=== PATIENT | female | born 1980 | race American Indian/Alaskan Native ===

== ENCOUNTER 2016-12-02 17:26 | Emergency (ER) | payer MEDICAID ==
[2016-12-02 19:39] VITALS: BP 129/81
[2016-12-02 19:53] LABS: Basophils % (Auto) 0.5 % (0.0-1.8); Eosinophils % (Auto) 0.8 % (0.0-4.3); Hemoglobin 10.2 gm/dl (10.1-14.3); Mean Corpuscular HGB Conc 31 % (30-34); Mean Corpuscular Volume 74 fl (79-97); Platelet Count 390 K/mm3 (140-440); Red Blood Count 4.44 M/mm3 (3.65-5.03); Red Cell Distribution Width 19.9 % (13.2-15.2); White Blood Count 8.2 K/mm3 (4.5-11.0)
[2016-12-02 19:58] LABS: Mean Corpuscular Hemoglobin 23 pg (28-32)
[2016-12-02 20:03] LABS: INR 1.06 (0.87-1.13)
[2016-12-02 20:08] LABS: Partial Thromboplastin Time 27.1 Sec. (24.2-36.6)
[2016-12-02 20:09] LABS: Alanine Aminotransferase 15 units/L (7-56); Albumin/Globulin Ratio 1.1 %; Alkaline Phosphatase 67 units/L (35-129); Anion Gap 19 mmol/L; BUN/Creatinine Ratio 15.71; Bilirubin,Total < 0.20 mg/dL (0.1-1.2); Blood Urea Nitrogen 11 mg/dL (7-17); Calcium 9.2 mg/dL (8.4-10.2); Carbon Dioxide 25 mmol/L (22-30); Chloride 101.5 mmol/L (98-107); Glucose 93 mg/dL (65-100); Lipase 26 units/L (13-60); Potassium 3.7 mmol/L (3.6-5.0); Sodium 142 mmol/L (137-145); Total Protein 7.5 g/dL (6.3-8.2)
[2016-12-02 22:23] LABS: Bacteria,Urine 2+ /HPF (Negative); Bilirubin,Urine NEG (Negative); Blood,Urine NEG (Negative); Ketones,Urine TR mg/dL (Negative); Leukocyte Esterase,Urine NEG (Negative); Mucus,Urine 3+ /HPF; Nitrite,Urine NEG (Negative); Urobilinogen,Urine < 2.0 mg/dL (<2.0)
[2016-12-02 22:27] LABS: WBC,Urine < 1.0 /HPF (0.0-6.0)
--- NOTE | 2016-12-02 23:23 | Emergency Department Report ---
HPI - General Chief Complaint: Abdominal Pain Time Seen by Provider: 12/02/16 23:07 - HPI HPI: Room 2 The patient is a 36-year-old female presenting with multiple complaints from headache to abdominal pain. The patient states for 1 month she has had intermittent headaches and dizziness associated with nausea and vomiting. The patient states she has felt cold for approximately 3 weeks. The patient states for 1 week she has had left upper quadrant and left lower quadrant abdominal pain. Patient also states for the past 2 years she has had chronic back pain from her sciatica. Patient currently gives her pain a score of 10/10. Patient denies any other complaints Location: [see above] Duration: [see above] Quality: Pain Severity: [see above] Modifying factors: [see above] Context: [see above] Mode of transportation: [not driving] ED Past Medical Hx - Past Medical History Previous Medical History?: Yes Hx Psychiatric Treatment: Yes (Anxiety Depression) Hx Asthma: Yes - Surgical History Past Surgical History?: Yes Additional Surgical History: eye surgury 2006. c section - Family History Family history: no significant - Social History Smoking Status: Never Smoker Substance Use Type: None, Alcohol (occasional) - Medications Home Medications: Home Medications Medication Instructions Recorded Confirmed Last Taken Type Acetaminophen/Codeine [Tylenol 1 - 2 tab PO Q6H PRN #10 tab 12/03/16 Unknown Rx /Codeine # 3 tab] Promethazine [Phenergan TAB] 25 mg PO Q6HR PRN #20 tab 12/03/16 Unknown Rx Promethazine [Phenergan] 25 mg [place] Q6HR PRN #5 supp.rect 12/03/16 Unknown Rx ED Review of Systems ROS: Stated complaint: HEADACHE,STOMACH Other details as noted in HPI Comment: All other systems reviewed and negative Constitutional: chills, weakness Eyes: denies: eye pain, eye discharge, vision change ENT: denies: ear pain, throat pain Respiratory: denies: cough, shortness of breath, wheezing Cardiovascular: denies: chest pain, palpitations Endocrine: no symptoms reported Gastrointestinal: abdominal pain, nausea, vomiting Genitourinary: denies: urgency, dysuria, discharge Musculoskeletal: back pain Skin: denies: rash, lesions Neurological: headache Psychiatric: denies: anxiety, depression Hematological/Lymphatic: denies: easy bleeding, easy bruising Physical Exam - Physical Exam Vital Signs: Vital Signs 12/02/16 19:28 Temperature 98.3 F Pulse Rate 83 Respiratory 20 Rate Blood Pressure 129/81 [Right] O2 Sat by Pulse 100 Oximetry Physical Exam: GENERAL: The patient is well-developed well-nourished male lying on stretcher not appearing to be in acute distress. [] HEENT: Normocephalic. Atraumatic. Extraocular motions are intact. Patient has moist mucous membranes. NECK: Supple. No meningitic signs are noted. Trachea midline CHEST/LUNGS: Clear to auscultation. There is no respiratory distress noted. HEART/CARDIOVASCULAR: Regular. There is no tachycardia. There is no gallop rub or murmur. ABDOMEN: Abdomen is soft, with mild discomfort to palpation in the left upper and left lower quadrants. There is also mild discomfort to palpation in the right lower quadrant. Patient has normal bowel sounds. There is no abdominal distention. SKIN: There is no rash. There is no edema. There is no diaphoresis. NEURO: The patient is awake, alert, and oriented. The patient is cooperative. The patient has no focal neurologic deficits. The patient has normal speech. Cranial nerves II through XII grossly intact, no drift MUSCULOSKELETAL: There is no evidence of acute injury. ED Course Vital Signs 12/02/16 19:28 Temperature 98.3 F Pulse Rate 83 Respiratory 20 Rate Blood Pressure 129/81 [Right] O2 Sat by Pulse 100 Oximetry ED Medical Decision Making - Lab Data Result diagrams: 12/02/16 19:35 12/02/16 19:35 Laboratory Tests 12/02/16 12/02/16 12/02/16 19:35 19:35 19:35 WBC 8.2 RBC 4.44 Hgb 10.2 Hct 33.0 MCV 74 L MCH 23 L MCHC 31 RDW 19.9 H Plt Count 390 Lymph % (Auto) 38.9 H Caldwell % (Auto) 10.2 H Eos % (Auto) 0.8 Baso % (Auto) 0.5 Lymph # 3.2 Caldwell # 0.8 Eos # 0.1 Baso # 0.0 Seg Neutrophils % 49.6 Seg Neutrophils # 4.1 PT INR APTT Sodium 142 Potassium 3.7 Chloride 101.5 Carbon Dioxide 25 Anion Gap 19 BUN 11 Creatinine 0.7 Estimated GFR > 60 BUN/Creatinine Ratio 15.71 Glucose 93 Calcium 9.2 Total Bilirubin < 0.20 AST 19 ALT 15 Alkaline Phosphatase 67 Troponin T Total Protein 7.5 Albumin 4.0 Albumin/Globulin Ratio 1.1 Lipase 26 HCG, Qual Negative Urine Color Urine Turbidity Urine pH Ur Specific Tyler Urine Protein Urine Glucose (UA) Urine Ketones Urine Blood Urine Nitrite Urine Bilirubin Urine Urobilinogen Ur Leukocyte Esterase Urine WBC (Auto) Urine RBC (Auto) Urine Bacteria (Auto) Amorphous Crystals Urine Mucus 12/02/16 12/02/16 12/02/16 19:35 19:35 21:37 WBC RBC Hgb Hct MCV MCH MCHC RDW Plt Count Lymph % (Auto) Caldwell % (Auto) Eos % (Auto) Baso % (Auto) Lymph # Caldwell # Eos # Baso # Seg Neutrophils % Seg Neutrophils # PT 13.7 INR 1.06 APTT 27.1 Sodium Potassium Chloride Carbon Dioxide Anion Gap BUN Creatinine Estimated GFR BUN/Creatinine Ratio Glucose Calcium Total Bilirubin AST ALT Alkaline Phosphatase Troponin T < 0.010 Total Protein Albumin Albumin/Globulin Ratio Lipase HCG, Qual Urine Color Yellow Urine Turbidity Turbid Urine pH 5.0 Ur Specific Tyler 1.032 H Urine Protein 30 mg/dl Urine Glucose (UA) Neg Urine Ketones Tr Urine Blood Neg Urine Nitrite Neg Urine Bilirubin Neg Urine Urobilinogen < 2.0 Ur Leukocyte Esterase Neg Urine WBC (Auto) < 1.0 Urine RBC (Auto) 8.0 Urine Bacteria (Auto) 2+ Amorphous Crystals 2+ Urine Mucus 3+ - EKG Data -: EKG Interpreted by Wi EKG shows normal: sinus rhythm Rate: normal - EKG Data When compared to previous EKG there are: no significant change Interpretation: unchanged when compared t (07/13/2015) - Radiology Data Radiology results: report reviewed (CT head and CT abdomen and pelvis), image reviewed (CT head CT abdomen and pelvis) CT head (read by radiologist)-no grossly acute intracranial abnormalities CT abdomen and pelvis (read by radiologist)-no focal inflammatory changes of the abdomen and pelvis. Large and small bowel loops are normal in caliber. The appendix is normal in caliber. Cholelithiasis. No gross inflammatory changes of the gallbladder or biliary dilatation. - Differential Diagnosis headache, migraines, diverticulitis, appendicitis Critical care attestation.: If time is entered above; I have spent that time in minutes in the direct care of this critically ill patient, excluding procedure time. ED Disposition Clinical Impression: Headache, Abdominal pain, Nausea & vomiting, Cholelithiasis Disposition: DISCHARGED TO HOME OR SELFCARE Is pt being admited?: No Does the pt Need Aspirin: No Condition: Stable Instructions: Abdominal Pain (ED), Biliary Colic (ED) Prescriptions: Acetaminophen/Codeine [Tylenol /Codeine # 3 tab] 1 - 2 tab PO Q6H PRN #10 tab PRN Reason: Pain Promethazine [Phenergan TAB] 25 mg PO Q6HR PRN #20 tab PRN Reason: Nausea Promethazine [Phenergan] 25 mg [place] Q6HR PRN #5 supp.rect PRN Reason: Vomiting Referrals: PRIMARY CARE, [Primary Care Provider] - 3-5 Days RADHA MAYS MD [Staff Physician] - 3-5 Days (Dr. Mays is a primary physician. Please follow up with him to be established as a patient) SEVEN ABRAMS MD [Staff Physician] - 3-5 Days (Dr. Abrams is a print support specialist. Please follow up with him for further evaluation) Time of Disposition: 02:07
[2016-12-02] MEDS ORDERED: NACL ONE (23:25)
[2016-12-03] MEDS ORDERED: NORCO 5/325 PO ONE (01:28)
--- NOTE | 2016-12-03 01:33 | Cat Scan Report ---
FINAL REPORT EXAM: CT HEAD/BRAIN WO CON HISTORY: headaches COMPARISON: None available. TECHNIQUE: Axial images obtained skull base through vertex. FINDINGS: No acute intracranial hemorrhage, midline shift or pathologic extra axial fluid collection. Ventricles and cisterns are normal in size and configuration for the patient's age. Irizarry-white differentiation preserved. Calvarium grossly intact. Mild mucosal thickening the visualized paranasal sinuses. Underpneumatization the mastoid air cells. Visualized orbits are grossly unremarkable. Incomplete fusion of the posterior arch of C1, anatomic variant. IMPRESSION: No grossly acute intracranial abnormality.
--- NOTE | 2016-12-03 02:01 | Cat Scan Report ---
FINAL REPORT EXAM: CT ABDOMEN PELVIS W CON HISTORY: left-sided abdominal pain COMPARISON: None available. TECHNIQUE: Contiguous axial images were obtained. Additional sagittal and coronal reformatted images were obtained. Administration of IV contrast given per institution protocol. Images submitted for interpretation. 100 cc Omnipaque [id number]. FINDINGS: Mild linear atelectasis at the left lung base. Cholelithiasis. No keyonna inflammatory changes the gallbladder or biliary dilatation by CT. Mild diffuse fatty infiltration of the liver. Spleen, pancreas, adrenal glands are grossly unremarkable. No solid renal lesion or hydronephrosis. Aorta and IVC are normal in caliber. Urinary bladder, uterus, ovaries are grossly unremarkable. No free fluid or lymphadenopathy. The appendix is normal in caliber. Large and small bowel loops normal in caliber. No focal inflammatory changes the bowel. Mild to moderate degenerative changes of the lumbar spine. Bony pelvis is grossly intact. IMPRESSION: No focal inflammatory changes of the abdomen and pelvis. Large and small bowel loops are normal in caliber. The appendix is normal in caliber. Cholelithiasis. No gross inflammatory changes of the gallbladder or biliary dilatation.
== END 2016-12-03 02:19 | disposition home or self-care (01) ==
LOC: ED 17:26
DX: K80.20 Calculus of gallbladder without cholecystitis without obstruction (principal); R11.2 Nausea with vomiting, unspecified; R51 Headache; F41.9 Anxiety disorder, unspecified; F32.9 Major depressive disorder, single episode, unspecified; J45.909 Unspecified asthma, uncomplicated
CPT/HCPCS: 36415; 70450; 74177; 80053; 81001; 83690; 84484; 84703; 85025; 85610; 85730; 93005; 93010; 99285; Q9967